=== PATIENT | female | born 1960 | race Caucasian/White ===

== ENCOUNTER → 2018-02-01 | Outpatient (CLI) | payer MEDICARE, MEDICAID ==
[~2018-02-01] MED LIST: ATIVAN0.5 MG; CLARITIN10 M2 PO; CLARITIN10 MG PO; ESTRADIOL 1 MG T1 M1 PO; FLEXERIL PO; FLONASE 0.05%50 MCG NASAL; HYDROCODON-ACE1 EAC5; HYDROCODON-ACE1 EAC5 PO; IBUPROFEN 600600 M1 PO; LYRICA 50 MG50 MG PO; MAGNESIUM; MEDROLDOSEPACK PO; MELOXICAM7.5 MG PO; MOBIC15 MG PO; MOBIC7.5 MG PO; MOTION RELIEF25 MG PO; NEXIUM40 MG PO; PHENERGAN25 M2 RC; PROAIR HFA8.5 GM IH; PROAIR HFA8.5 GM INH; PROBIOTIC1 EAC2 PO; XANAX 0.25 MG0.25 MG PO; XANAX 0.5 MG0.5 M1 PO; XANAX 0.5 MG0.5 MG PO; XYZAL5 MG PO; ZOFRAN ODT4 MG PO; ZYRTEC10 M5 PO
--- NOTE | 2018-02-09 14:39 | PAINCON ---
[address] [address] PAIN MANAGEMENT CONSULTATION Name: LINSEY CRAIG Room: [facility] RAY HurtadoDagmar#: [id number] Admission: 02/01/18 Attend Phys: Julio Mckoy MD Discharge: Date of : 62 Report #: [id number] THIS REPORT FOR: //name// CC: Rigo Mckoy DATE OF SERVICE: 02/01/2018 CHIEF COMPLAINT: Here for medication renewal, low back and right leg pain. FOLLOWUP HISTORY: The patient is a 57-year-old female who has been seen in the pain clinic and followed by Dr. Jett Bowens. She has returned today for renewal of her medications. This is my first time following up with the patient. She does have some low back pain in the right lower extremity and has had some paresthesias in the past. She has undergone epidural steroid injections and found that they would have been helpful. As noted that her pain is improved either 50-90% after injections in the past. She did fall in November. She feels that her back is better now. Had some pain radiating down to the right leg. She rates her pain as a 3/10. At this juncture, she would like to have her medications hydrocodone and Flexeril refilled. Notes that with her pain she has had some discomfort with walking, sitting, standing, bending, lifting as well as some difficulty with sleeping. ALLERGIES: OXYCODONE, MORPHINE, DULOXETINE, GABAPENTIN. MEDICATIONS: Alprazolam, albuterol, Zyrtec, cyclobenzaprine, estradiol, fluticasone, hydrocodone, ibuprofen, lactobacillus, Xyzal and magnesium. PAST MEDICAL HISTORY: Lumbar radiculopathy, lumbosacral spondylosis with radiculopathy, degenerative of lumbar spine. PAST SURGICAL HISTORY: Lumbar spine surgery 2002 first, in 2008 spinal cord stimulator infected and removed after sepsis, right shoulder surgery in 2007, hysterectomy in 01/17/1993, lap band in 2009, back surgeries were 03/2002 and 04/2009. SOCIAL HISTORY: She has smoked tobacco, denies illicit use of drugs. PHYSICAL EXAMINATION: GENERAL: The patient is a well-developed female, looks her stated age. Appearance: Appropriate appearance. Orientation: The patient is alert and oriented x 3. Affect appears appropriate. HEENT: Normocephalic, atraumatic with extraocular eye muscles intact. Normal hearing. No nasal complaints. Moist buccal membranes. NECK: [place] [address] PAIN MANAGEMENT CONSULTATION Name: LINSEY CRAIG Room: [facility]#: [id number] Admission: 02/01/18 Attend Phys: Julio Mckoy MD Discharge: Date of : 62 Report #: [id number] LUNGS: Clear to auscultation. HEART: Regular rate. ABDOMEN: Nontender. EXTREMITIES: The patient is not having significant problems in her lower extremities. No clubbing, cyanosis or edema. Straight leg raises are not very problematic today. Babinski is negative. Gait is normal. PAIN CLINIC ASSESSMENT: 1. History of osteoarthritis, lumbar spondylosis. 2. Height 5 feet 3 inches, weight 172 pounds, BMI is 30. 3. Vital Signs: Blood pressure 142/80, pulse 78, respiratory rate is 14, pain intensity 3/10. 4. Fall risk. The patient has not fallen in the last 3 months. 5. Blood thinner, the patient is not on a blood thinner 6. History of hypertension. The patient is not being treated for hypertension. 7. Opioid therapy. The patient is receiving opioid therapy and gets her medication from the pain clinic. 8. Risk assessment tool: 9. Functional assessment tool. 10. Recreational drug use. The patient denies use of recreational drugs use. She states that she continue to use tobacco, the patient states that she continues to decrease her tobacco use down to 6 cigarettes per day, down from 1 pack per day, and has a 70-[id number]-[id number] history. Denies use of alcohol frequently, occasionally on Wednesday and might drink beverage. ASSESSMENT: 1. Symptomatic lumbar radiculopathy, history. 2. Displaced lumbar intervertebral disk with radiculopathy. 3. Lumbosacral spondylosis with radiculopathy. 4. Lumbar degeneration. 5. Chronic intractable pain, had spinal cord stimulator which has been removed after infection. RECOMMENDATIONS: We discussed treatment options with the patient. At this juncture, she finds that her current medications are helpful. They include cyclobenzaprine 10 mg p.o. b.i.d., hydrocodone 10/325 one p.o. q.i.d. and Meloxicam 7.5 mg b.i.d. The patient feels that alprazolam is helpful. We explained to her that we usually do not write for that medication. She will follow up with her primary at which time if it is felt that is needed to be continued, but she could get that from her. Pain physicians feel that those types of medications can be contraindicated/not helpful and chronic pain. They decreased the amount of serotonin levels. This can sometimes exacerbates the pain. A script for her medications has been written. She will call us if she [address] [place] [address] PAIN MANAGEMENT CONSULTATION Name: LINSEY CRAIG Room: [facility]#: [id number] Admission: 02/01/18 Attend Phys: Julio Mckoy MD Discharge: Date of : 62 Report #: [id number] has any problems with her medications. We would like to thank you for letting us participate in her care. We hope she continues to improve. <ELECTRONICALLY SIGNED> By: Julio Mckoy MD 02/09/18 1439 1433 1542N. Javier Mckoy MD /[facility]
== END ==
LOC: M.PC 01-31 09:10
DX: M47.27 Other spondylosis with radiculopathy, lumbosacral region (principal); M51.16 Intervertebral disc disorders with radiculopathy, lumbar region; G89.4 Chronic pain syndrome; M79.604 Pain in right leg

== ENCOUNTER → 2018-04-26 | Outpatient (CLI) | payer MEDICARE, MEDICAID ==
--- NOTE | 2018-05-11 13:50 | PAINCON ---
[address] [address] PAIN MANAGEMENT CONSULTATION Name: LINSEY CRAIG Room: [facility] R[facility] HurtadoDagmar#: [id number] Admission: 04/26/18 Attend Phys: Julio Mckoy MD Discharge: Date of : 62 Report #: [id number] THIS REPORT FOR: //name// CC: Rigo Mckoy DATE OF SERVICE: 04/26/2018 FOLLOWUP COMPLAINT: Here for medication renewal. I have had some puppies and I recently fell on my knees because they got in the way. FOLLOWUP HISTORY: The patient is a 57-year-old female who has been followed in the Pain Clinic because of chronic pain. She has pain radiating down the lower portion of her back. She also has pain in her right leg. She has had a litter of puppies. There were 10. One . Nine were living with her. States that when she was going outside, one of the dogs ran in front of her. She stumbled and fell to her knees. She is having pain and discomfort on the left and the right side. She is having difficulty sleeping on her left side or her right side. Palpation in the lateral portion of her hips is very sore. She rates her pain as a 3/10 at this juncture. As you may recall, she has had some episodes of lumbar radiculopathy. Overall, things are going reasonably well. She would like to continue with her medication of hydrocodone and Flexeril. She feels that those medications continued to be helpful. Notes that continues to have some pain and discomfort when she is walking, standing, or climbing stairs, bending and lifting. Medications as well as cold packs to the affected area are helpful. ALLERGIES: OXYCODONE, MORPHINE, GABAPENTIN, DULOXETINE. MEDICATIONS: Alprazolam, albuterol, Zyrtec, cyclobenzaprine, estradiol, fluticasone, hydrocodone, ibuprofen, lactobacillus, Xyzal, magnesium. PAIN CLINIC ASSESSMENT: 1. The patient has a history of osteoarthritis with some lumbar spondylosis. 2. Height 5 feet 4 inches, weight 176 pounds, BMI is 30. 3. VITAL SIGNS: Blood pressure 134/85, heart rate 85, respiratory rate 16, room air saturation 96%, and temperature 98.2. 4. Pain intensity 02/05. 5. Fall risk. The patient tripped over some puppies and fell with some soreness in her hips at this juncture. 6. Blood thinner. The patient is not on a blood thinning medication. 7. History of hypertension. The patient is not being treated for hypertension. 8. Opioid therapy. The patient is receiving opioid therapy from the Pain Clinic and has signed a contract with the Pain Clinic. Gets her medication [place] [address] PAIN MANAGEMENT CONSULTATION Name: LINSEY CRAIG Room: [facility]#: [id number] Admission: 04/26/18 Attend Phys: Julio Mckoy MD Discharge: Date of : 62 Report #: [id number] 9. Risk assessment tool. 10. Functional assessment tool. 11. Recreational drug. The patient denies use of recreational drugs. 12. Tobacco: The patient states that she continues to smoke and is trying to decrease her amount of tobacco use. 13. Alcohol: The patient denies use of regular alcohol use, occasional use and drinks an alcoholic beverage. PHYSICAL EXAMINATION: GENERAL: The patient is a well-developed and well-nourished female, VITAL SIGNS: Appears her stated age. She is alert and oriented x 3. Affect is appropriate. HEENT: Normocephalic, atraumatic. Extraocular eye muscles intact. Normal hearing. Nasal mucosa moist. NECK: Without adenopathy, masses. Good range of motion. LUNGS: Clear to auscultation without rhonchi. HEART: Regular rate. Normal S1, S2. ABDOMEN: Nontender, slightly protuberant. EXTREMITIES: Upper extremity muscle strength is judged to be 5/5 without clubbing, cyanosis, or edema. The patient has a number of scratches on her left and right hands as a result of the puppies scratching her. Lower extremity, the patient has pain and discomfort in the left as well as the right trochanteric bursitis area. Palpation in this area causes the patient to wince and pullback. IMPRESSION: 1. History of symptomatic lumbar radiculopathy by history. 2. Recent fall, tumbling over puppies hitting her knees. The patient has left and right bursitis. 3. Lumbosacral spondylosis with radiculopathy history. 4. Lumbar degeneration. 5. Chronic intractable pain treated with opioid therapy. 6. The patient had a spinal cord stimulator which was removed after development of infection. RECOMMENDATIONS: We discussed treatment options with the patient. At this juncture, we will continue with her current medications. A script for her medications has been written. Cyclobenzaprine, hydrocodone, Meloxicam as well as alprazolam have been written. The patient has also been given a Medrol Dosepak to take for the trochanteric bursitis on the left and right side. Hopefully, things will improve, so that she is able to sleep on her side. She will call us if she has any problems [place] [address] PAIN MANAGEMENT CONSULTATION Name: LINSEY CRAIG Room: [facility]#: [id number] Admission: 04/26/18 Attend Phys: Julio Mckoy MD Discharge: Date of : 62 Report #: [id number] We would like to thank you for letting us participate in her care. We hope she continues to improve. <ELECTRONICALLY SIGNED> By: Julio Mckoy MD 05/11/18 1350 1026 1227N. Javier Mckoy MD /nt
== END ==
LOC: M.PC 00:08
DX: M70.52 Other bursitis of knee, left knee (principal); M70.51 Other bursitis of knee, right knee; M51.36 Other intervertebral disc degeneration, lumbar region; G89.4 Chronic pain syndrome; Z79.899 Other long term (current) drug therapy

== ENCOUNTER → 2018-07-19 | Outpatient (CLI) | payer MEDICARE, MEDICAID ==
--- NOTE | 2018-07-27 16:41 | PAINCON ---
[address] [address] PAIN MANAGEMENT CONSULTATION Name: LINSEY CRAIG Room: [facility] RAY HurtadoDagmar#: [id number] Admission: 07/19/18 Attend Phys: Julio Mckoy MD Discharge: Date of : 62 Report #: [id number] THIS REPORT FOR: //name// CC: Rigo Mckoy DATE OF SERVICE: 07/19/2018 CHIEF COMPLAINT: Low back pain in the right leg area. HISTORY OF PRESENT ILLNESS: The patient is a 57-year-old female who has been referred to the pain clinic for evaluation. She has been experiencing pain and discomfort in her back. The patient states that she has some plants on the back side of her yard. Wednesday, she decided to move the plants. Some of the animals were disturbing the plants. After pulling these plans she noticed a worsening of her pain and discomfort. She did have a history of bursitis in the past. At this juncture, she has noticed a worsening of pain and discomfort as a result of this. She is experiencing pain in the middle portion of her back. Notes the pain is in a 9/10. She has difficulty with activities of daily living. There has been no change in her bowel or bladder function. Feels that the Meloxicam medication, Hydrocodone, Xanax and Flexeril continue to be helpful. Pain is greater than 50% improved. She is experiencing more pain now after lifting the items. They weighed about 100 pounds each. Notes that walking, standing, sitting, climbing stairs, lifting and bending are problematic. She has tried heat and cold finds that is somewhat helpful. ALLERGIES: OXYCODONE AND MORPHINE, GABAPENTIN AND DULOXETINE. CURRENT MEDICATIONS: Albuterol 1 puff q.i.d., alprazolam 0.5 mg, Zyrtec 10 mg at bedtime, Flexeril 10 mg b.i.d./t.i.d. p.r.n., Estrace 1, 2 mg tablets daily, Flonase 0.05% nasal spray b.i.d. each nostril, hydrocodone 10/325 one p.o. q.i.d., ibuprofen 600 mg q. 6 hours, lactobacillus probiotic, Xyzal 5 mg magnesium. PAIN CLINIC ASSESSMENT: 1. The patient has a history of osteoarthritis with some problems in the lumbar back with spondylosis. 2. Height 5 feet 4 inches, weight 176 pounds, BMI is 30. 3. Vital signs: Blood pressure 144/71, heart rate 64, respiratory rate 16, room air saturation 94% and temperature 98.1. Pain intensity 9/10. 4. Fall risk. The patient has not fallen in the last 3 months. 5. Blood thinner. The patient is not on a blood thinning medication. 6. Hypertension. The patient is not being treated for hypertension. 7. Opioid. The patient is receiving opioid medications through the pain clinic. 8. Risk [place] [address] PAIN MANAGEMENT CONSULTATION Name: LINSEY CRAIG [id number] Admission: 07/19/18 Attend Phys: Julio Mckoy MD Discharge: Date of : 62 Report #: [id number] 9. Functional assessment tool. 10. Recreational drug use. The patient denies use of recreational drugs. 11. Tobacco. The patient smokes about 1/5 of a pack of cigarettes per week. 12. The patient has a 81-wlsv-ixzb history. The patient uses a vapor 10. 13. Alcohol: The patient denies use of alcoholic beverages. PHYSICAL EXAMINATION: GENERAL: The patient is a well-developed, well-nourished white female, appears her stated age. She is alert and oriented x 3. Affect is appropriate. Speech is fluent. HEENT: Normocephalic, atraumatic. Extraocular eye muscles intact. Normal hearing. Nasal mucosa is moist. NECK: Without adenopathy or masses. Good range of motion. LUNGS: Clear to auscultation without rhonchi or rales. HEART: Regular rate. S1, S2 normal. ABDOMEN: Nontender, slightly protuberant. EXTREMITIES: Upper extremity muscle strength is judged to be 5/5 without neurological changes. The patient has less scratches on her arm. She did have some number of scratches last visit because of puppies. He does have some pain and discomfort in lower portion of her back. He has a well-healed scar from about L3 to the sacral area. Palpation in the right paraspinous area, reproduces pain and discomfort. IMPRESSION: 1. Myofascial pain as a result of moving items weighing up to 100 pounds. 2. History of symptomatic lumbar radiculopathy by history. 3. Lumbosacral spondylosis with radicular history. 4. Lumbar degenerative changes. 5. Chronic intractable pain treated with opioid therapy. 6. The patient has a spinal cord stimulator initially, but was removed secondary to infection. RECOMMENDATIONS: We discussed treatment options with the patient. Palpation in the area of the right paraspinal area at approximately L4, L5 and S1 reproduce a significant component of the patient's pain. Palpation in this area reproduced the pain particularly when the patient leaned forward. This area was sterilely prepped with a Betadine solution. A 25-gauge needle was then advanced into the area of the discomfort. The patient states that this did reproduce her discomfort. Total of 10 mL of 0.5% bupivacaine and 40 mg triamcinolone was injected into this area. Approximately 2 inches below this was another area, which was tender and cause pain. This area was identified. This trigger point was injected with a total of 10 mL of 0.5% bupivacaine and 40 mg triamcinolone. The patient tolerated the procedure well. There were no complications. She remained in the pain clinic for an appropriate amount of time. She will follow up in the future as needed. We would like to thank [place] [address] PAIN MANAGEMENT CONSULTATION Name: LINSEY CRAIG Room: [facility]#: [id number] Admission: 07/19/18 Attend Phys: Julio Mckoy MD Discharge: Date of : 62 Report #: [id number] participate in her care. A script for her medications of hydrocodone were rewritten. <ELECTRONICALLY SIGNED> By: Julio Mckoy MD 07/27/18 1641 1703 0310N. Javier Mckoy MD /nt
== END | disposition home or self-care (01) ==
LOC: M.PC 04:45
DX: M79.1 Myalgia (principal); M54.17 Radiculopathy, lumbosacral region; I10 Essential (primary) hypertension; Z68.30 Body mass index [BMI] 30.0-30.9, adult; Z79.899 Other long term (current) drug therapy; Z88.8 Allergy status to other drugs, medicaments and biological substances

== ENCOUNTER → 2018-10-11 | Outpatient (CLI) | payer OTHER, MEDICAID ==
--- NOTE | 2018-10-12 15:35 | PAINCON ---
[facility] [address] [place] [address] PAIN MANAGEMENT CONSULTATION Name: LINSEY CRAIG Room: [facility] RAY HurtadoDagmar#: [id number] Admission: 10/11/18 Attend Phys: Julio Mckoy MD Discharge: Date of : 62 Report #: [id number] THIS REPORT FOR: //name// CC: Rigo Mckoy DATE OF SERVICE: 10/11/2018 FOLLOWUP HISTORY: The patient is a 57-year-old female who has been followed in the pain clinic because of pain and discomfort in her back. She injured her back while moving some plants. She rates her pain as 3-4 at this juncture. She did have a trigger point injection at the last visit, it was found that there was greater than 50% improvement in her pain, did get pulled down by her dog. States that her dog is female, is a pit bull. Dog was pulling. She fell to her knees and elbows. She has noted some pain and discomfort in the right calf area down into the anterior portion of her right foot. Notes that this intensity, sometimes wakes her makes it more difficult to fall asleep. She has not had back surgery. Denies any bowel or bladder dysfunction. Feels that the Meloxicam 7.5 mg b.i.d. works well. Notes activities of daily living such as walking, sitting, standing, climbing stairs, lifting and bending can still be problematic. She feels that her medications, heat and cold are helpful. ALLERGIES: OXYCODONE, MORPHINE, GABAPENTIN, DULOXETINE. CURRENT MEDICATIONS: Albuterol puff 1 q.i.d., alprazolam 0.5 mg, Zyrtec 10 mg at bedtime, Flexeril 10 mg b.i.d., Estrace 1-2 mg tablets daily, Flonase 0.05% nasal spray b.i.d., hydrocodone 10/325 one p.o. q.i.d., meloxicam 7.5 mg 1 p.o. b.i.d., lactobacillus probiotic, Xyzal 5 mg, magnesium. PAIN CLINIC ASSESSMENT/PQRS: 1. The patient does have some problem with osteoarthritic changes in the low back area with spondylosis. 2. Height 5 feet 4 inches, weight 183 pounds, BMI 31.5. 3. Vital signs: Blood pressure 143/74, heart rate 74, respiratory rate 16, room air saturation 96%, temperature 98.4. 4. Pain score 3/10. 5. Fall risk. The patient did fall after being pulled down by her pit-bull dog. 6. Blood thinner. The patient is not on a blood thinning medication. 7. Hypertension. The patient is not being treated for hypertension. 8. Opioids. The patient is receiving her medications from [facility], pain clinic. 9. Risk assessment tool, low for opioid use. 10. Functional assessment tool. 11. Recreational drug use. The patient denies use of recreational drugs. 12. Tobacco: The patient smokes less. States at this juncture, she is smoking [facility] [address] [place] [address] PAIN MANAGEMENT CONSULTATION Name: LINSEY CRAIG Room: [facility]#: [id number] Admission: 10/11/18 Attend Phys: Julio Mckoy MD Discharge: Date of : 62 Report #: [id number] about 1-2 cigarettes per day. She is using vapor 10. She is aware that it is indeed still nicotine, but feels that this better that with chemicals from cigarettes. 13. Alcohol: The patient denies use of alcohol use. PHYSICAL EXAMINATION: GENERAL: The patient is a well-developed, well-nourished white female. Appears her stated age. She is alert and oriented x3. Her affect is appropriate. Speech is fluent. HEAD, EYES, EARS, NOSE, AND THROAT: Normocephalic, atraumatic. Extraocular eye muscles intact. Sclerae nonicteric. Mucous membranes are moist. NECK: Without adenopathy or masses. Good range of motion. LUNGS: Clear to auscultation without rhonchi or rales. HEART: Regular rate. S1, S2. ABDOMEN: Nontender, slightly protuberant, bowel sounds present. EXTREMITIES: Upper extremity muscle strength is judged to be 5/5 for the major muscle groups. The patient has pain and discomfort in her right leg, which radiates down the lower right L5 distribution L4-L5 distribution below her knee. States that sometimes wakes her at night with cramping sensation. A well-healed scar in the sacral area. IMPRESSION: 1. History of myofascial pain after lifting a 100-pound item. 2. History of symptomatic lumbar radiculopathy by history. 3. Lumbosacral spondylosis with radicular history. 4. Lumbar degenerative changes. 5. Chronic intractable pain treated with opioid therapy. 6. The patient has a spinal cord stimulator initially, but was removed secondary to infection. RECOMMENDATIONS: We discussed treatment options with the patient. We will continue with her current medical regimen. Risks and benefits of opioid medication were discussed. They can cause dependence. They can become less effective secondary to tolerance, 72,000 people last year as a result of overdosing. The patient is aware of the statistics and states that she is using her medications as prescribed. They enable her to engage in activities, she would not be able to without significant discomfort. She would like to continue with her medications. A script for hydrocodone 10/325 one p.o. q.i.d. has been written. The patient will also continue with alprazolam 0.5 mg one p.o. t.i.d., Flexeril 10 mg 1 p.o. t.i.d. and Mobic 7.5 mg 1 p.o. b.i.d. have been dispensed. The patient will call us if [place] [address] PAIN MANAGEMENT CONSULTATION Name: LINSEY CRAIG [facility]: [facility]#: [id number] Admission: 10/11/18 Attend Phys: Julio Mckoy MD Discharge: Date of : 62 Report #: [id number] We would like to thank you for letting us to participate in her care. We hope she continues to improve. <ELECTRONICALLY SIGNED> By: Julio Mckoy MD 10/12/18 1535 1141 1659N. Javier Mckoy MD /[facility]
== END ==
LOC: M.PC 04:37
DX: M47.27 Other spondylosis with radiculopathy, lumbosacral region (principal); M51.16 Intervertebral disc disorders with radiculopathy, lumbar region; G89.4 Chronic pain syndrome; M79.18 Myalgia, other site; Z79.891 Long term (current) use of opiate analgesic

== ENCOUNTER → 2019-01-03 | Outpatient (CLI) | payer OTHER, MEDICAID ==
--- NOTE | ~2019-01-03 | PAINCON ---
[address] [address] PAIN MANAGEMENT CONSULTATION Name: LINSEY CRAIG Room: [facility] RAY HurtadoDagmar#: [id number] Admission: 01/03/19 Attend Phys: Julio Mckoy MD Discharge: Date of : 62 Report #: [id number] THIS REPORT FOR: //name// CC: Rigo Mckoy DATE OF SERVICE: 01/03/2019 CHIEF COMPLAINT: Here for medication renewal. HISTORY: The patient is a 58-year-old female who has been followed in the Pain Clinic because of chronic pain. As you recall, she injured her back while moving some plants. States that her pain today is a 3/10. Has noted greater than 50% improvement overall. She did fall after being ____ by her dog, which is a pit bull. Has some discomfort in her calf and pain radiating to anterior portion of her right foot. She has not had back surgery. Denies any bowel or bladder dysfunction. She feels that Meloxicam is helpful. Continues to note pain and discomfort with activities of daily living such as sitting, standing, climbing chairs, walking, climbing stairs, lifting and bending still remain problematic. Feels that her medications are helpful and would like to continue with them. Again, her primary problem is low back pain with right leg discomfort. She has had a lap band placed. She is considering progressing to a gastric sleeve. She is scheduled to see a surgeon for evaluation on 01/16/2019. ALLERGIES: OXYCODONE, MORPHINE, GABAPENTIN, DULOXETINE. CURRENT MEDICATIONS: Albuterol 1 puff q.i.d., alprazolam 0.5 mg, Zyrtec 10 mg at bedtime, Flexeril 10 mg b.i.d., esterase 1-2 mg tablets daily, Flonase 0.05% spray, hydrocodone 10/325 one p.o. q.i.d., Meloxicam 7.5 mg 1 p.o. b.i.d., lactobacillus probiotic, Xyzal 5 mg, magnesium. PAIN CLINIC ASSESSMENT/PQRS: 1. The patient has some osteoarthritic changes in her low back area with spondylosis. 2. The patient is not being treated for rheumatoid arthritis. 3. Height 5 feet 4 inches, weight 191 pounds, BMI is 32.9. 4. Blood pressure 143/60, heart rate 80, respiratory rate 16, room air saturation 94%, and temperature 98.2. 5. Pain intensity 10. 6. Fall risk. The patient has not fallen since we saw her last. She did get pulled down by her pit bull. 7. Blood thinner. The patient is not on a blood thinning medication. 8. Hypertension. The patient is not being treated for hypertension. 9. Opioids. The patient is receiving her medications from one source, the Pain Clinic. 10. Risk assessment tool, low [place] [address] PAIN MANAGEMENT CONSULTATION Name: LINSEY CRAIG [id number] Admission: 01/03/19 Attend Phys: Julio Mckoy MD Discharge: Date of : 62 Report #: [id number] 11. Functional assessment tool. 12. Recreational drug use. The patient denies use of recreational drugs. 13. Tobacco: The patient smokes and continues to try to decrease her tobacco use. 14. The patient is using vapor treatment. 15. Alcohol: The patient denies use of alcoholic beverages on a regular basis. PHYSICAL EXAMINATION: GENERAL: The patient is a well-developed and well-nourished white female. Appears her stated age. She is alert and oriented x 3. Her affect is appropriate. Speech is fluent. HEENT: Normocephalic and atraumatic. Extraocular eye muscles intact. Sclerae nonicteric. Mucous membranes are moist. NECK: Without adenopathy or JVD. Good range of motion. LUNGS: Clear to auscultation without rhonchi or rales. HEART: Regular rate. S1, S2. ABDOMEN: Nontender, slightly protuberant. Bowel sounds present. EXTREMITIES: Upper extremity muscle strength is judged to be 5/5 for the major muscle groups. The patient has some pain and discomfort in the right leg. This radiates down the L4-L5 dermatomal distribution. This also proceeds below her knee. Notes some cramping discomfort. Well-healed scar in the sacral area. IMPRESSION: 1. History of myofascial pain after lifting 100-pound. 2. History of symptomatic lumbar radiculopathy by history. 3. Lumbosacral spondylosis with radicular history. 4. Lumbar degenerative changes. 5. Chronic intractable pain, treated with opioid therapy. 6. The patient has a spinal cord stimulator initially, but this was removed secondary to infection. RECOMMENDATIONS: We discussed treatment options with the patient. Risks and benefits of opioid use were discussed. They could become problematic secondary to development of dependence. The patient also is aware of the left knee and affect of these medications as a result of tolerance. She would like to have her medications renewed. A script for her medications have been provided. They include hydrocodone 10/325 one p.o. q.i.d., alprazolam 0.5 mg t.i.d. The patient will call us if she has any concerns. We would like to thank you for letting us participate in her care. We hope she continues to improve. By: [id number]. Javier Mckoy MD /nt
== END ==
LOC: M.PC 10:00
DX: M47.897 Other spondylosis, lumbosacral region (principal); G89.4 Chronic pain syndrome; M54.16 Radiculopathy, lumbar region; M79.18 Myalgia, other site; Z79.899 Other long term (current) drug therapy

== ENCOUNTER → 2019-03-28 | Outpatient (CLI) | payer OTHER, MEDICAID ==
[~2019-03-28] MED LIST changes: +CYCLOBENZAPRINE5 MG PO
--- NOTE | ~2019-03-28 | PAINCON ---
[address] [address] PAIN MANAGEMENT CONSULTATION Name: LINSEY CRAIG Room: [facility] RAY HurtadoDagmar#: [id number] Admission: 03/28/19 Attend Phys: Julio Mckoy MD Discharge: Date of : 62 Report #: [id number] THIS REPORT FOR: //name// CC: Rigo Mckoy DATE OF SERVICE: 03/28/2019 CHIEF COMPLAINT: Chronic low back pain. HISTORY: The patient is a 58-year-old female who has been followed in the pain clinic because of chronic pain. As you recall, she injured her back while moving some plants. She stated this has been more problematic since January. She notes an improvement overall. She did fall when her dog has got under her foot. She has returned today for renewal of her medications. She is contemplating a gastric sleeve. She has used a different technique in the past. She states that she is doing stretching exercises to help with her pain. She rates her pain as a 5/10. She has had a lap band in the past. She feels that her medications of Flexeril, meloxicam. Alprazolam, and hydrocodone are beneficial. They provide her 50% to 75% improvement in her discomfort. She notes the pain is worse with change in temperature, walking, sitting, standing, climbing stairs, lifting and bending. She feels that her pain improves with use of medication as well as with the use of rest. She has decreased her use of tobacco. She has not used cigarettes since 01/27/2019. She found that the Chantix has been beneficial. ALLERGIES: CODEINE, MORPHINE, GABAPENTIN, and DULOXETINE. CURRENT MEDICATIONS: Albuterol 1 puff p.o. q.i.d., alprazolam 0.5 mg, Zyrtec 10 mg at bedtime, Flexeril 10 mg b.i.d., esterase 1-2 tablets daily, Flonase 0.05% spray, hydrocodone 10/325 one p.o. q.i.d., Meloxicam 7.5 mg 1 p.o. b.i.d., lactobacillus probiotic, Xyzal 5 mg, and magnesium. PAIN CLINIC ASSESSMENT/PQRS: 1. The patient has some arthritic changes in her low back with spondylosis. She has not been treated for rheumatoid arthritis. 2. Height 5 feet 4 inches, weight 199 pounds, and BMI is 36.4. 3. Blood pressure 150/46, heart rate 70, respiratory rate 16, room air saturation 97%, and temperature 99.3. 4. Pain intensity: 5/10. 5. Fall risk: The patient has not fallen since we saw her last. 6. Blood thinner: The patient is not on a blood thinning medication. 7. Hypertension. The patient has not been treated for hypertension. 8. Opioids: The patient is receiving her medication [place] [address] PAIN MANAGEMENT CONSULTATION Name: LINSEY CRAIG [facility] [id number] Admission: 03/28/19 Attend Phys: Julio Mckoy MD Discharge: Date of : 62 Report #: [id number] 9. Risk assessment tool: Low for opioid use. 10. Functional assessment tool. 11. Recreational drug use. The patient denies use of recreational drugs. 12. Tobacco: The patient has been using Chantix. This was able to curb her desire for use of tobacco. Overall, she is happy with the results. 13. Alcohol: The patient denies use of alcoholic beverages. PHYSICAL EXAMINATION: GENERAL: The patient is a well-developed, well-nourished, somewhat obese white female, appears her stated age. She is alert and oriented x 3. Affect is appropriate. Speech is fluent. HEENT: Normocephalic, atraumatic. Extraocular eye muscles intact. Sclerae are nonicteric. Mucous membranes are moist. NECK: Without adenopathy or JVD. HEART: Regular rate. S1, S2. LUNGS: Clear to auscultation without rhonchi or rales. ABDOMEN: Slightly protuberant. Bowel sounds present. MUSCULOSKELETAL: Without significant scoliosis, kyphosis or lordosis. The patient has some pain and discomfort in her lower back with some pain that radiates down to her left leg in the L4-L5 dermatomal distribution. Well-healed scar in the sacral area. IMPRESSION: 1. History of myofascial pain after lifting 100 pounds. 2. History of symptomatic lumbar radiculopathy by history. 3. Lumbosacral spondylosis with radicular hip history. 4. Lumbar degenerative changes. 5. Chronic intractable pain treated with opioid therapy. 6. The patient has a spinal cord stimulator initially, but this was removed secondary to infection. RECOMMENDATIONS: We discussed treatment options with the patient. At this juncture, we will continue with her Flexeril medications. A script for Flexeril medication has been written. She will take 5 mg 1 p.o. b.i.d. as necessary. The patient will also continue with hydrocodone 10/325 one p.o. q.i.d. The patient has been given 3-month supply of the hydrocodone medication. She will continue with Xanax 0.5 mg 1 p.o. t.i.d. and meloxicam 7.5 mg 1 p.o. b.i.d. The patient will stop the meloxicam should she note some GI concerns. We would like to thank you for letting us participate in her care. We hope she continues to improve. By: [id number]. Javier Mckoy MD /nt
== END ==
LOC: M.PC 04:52
DX: G89.29 Other chronic pain (principal); M47.26 Other spondylosis with radiculopathy, lumbar region; Z88.5 Allergy status to narcotic agent; Z88.0 Allergy status to penicillin; Z79.899 Other long term (current) drug therapy; Z79.891 Long term (current) use of opiate analgesic

== ENCOUNTER → 2019-06-27 | Outpatient (CLI) | payer OTHER, MEDICAID ==
--- NOTE | ~2019-06-27 | PAINCON ---
[address] [address] PAIN MANAGEMENT CONSULTATION Name: LINSEY CRAIG Room: [facility] RAY HurtadoDagmar#: [id number] Admission: 06/27/19 Attend Phys: Julio Mckoy MD Discharge: Date of : 62 Report #: [id number] THIS REPORT FOR: //name// CC: Rigo Mckoy DATE OF SERVICE: 06/27/2019 CHIEF COMPLAINT: Low back and right leg pain. HISTORY: The patient is a 58-year-old female who has been seen in the pain clinic in the past because of pain and discomfort in the low back area. She had a lap band placed in 2009. The lap band has been removed. This was on 06/20/2019. The patient also had a gastric bypass at that time. She is wearing a compression garment around her abdomen. She has been 1 week out of surgery. Overall, things seem to be going reasonably well. Rates her pain as a 7/10 at this point. Finds that her hydrocodone, Flexeril, meloxicam and alprazolam are helpful. She has returned to the pain clinic with a desire to have these medications renewed. She feels that the pain is about 50% better at this point. Notes worsening of pain with activity, cold, walking, sitting, standing, climbing stairs, sitting and bending, lifting because of the newness of her surgery. She has used Chantix to help decrease her tobacco use. ALLERGIES: CODEINE, MORPHINE, GABAPENTIN, DULOXETINE. CURRENT MEDICATIONS: Albuterol 1 puff q.i.d., alprazolam 0.5 mg, Zyrtec 10 mg at bedtime, Flexeril 10 mg b.i.d., esterase 1-2 tablets daily, Flonase 0.05%, hydrocodone 10/325 one p.o. q.i.d., Meloxicam 7.5 mg b.i.d., lactobacillus -- probiotic, Xyzal 5 mg, and magnesium. PAIN CLINIC ASSESSMENT/PQRS: 1. The patient has some arthritic changes in the low back area with spondylosis. She has not been treated for rheumatoid arthritis. 2. Height 5 feet 2 inches, weight 199 pounds, BMI is 37.0 3. VITAL SIGNS: Blood pressure 146/80, heart rate 74, respiratory rate 16, room air saturation 95%, and temperature 98.8. 4. Pain intensity, 7/10. 5. Fall history: The patient has not fallen in the last 3 months. 6. Blood thinner. The patient is not on a blood thinning medication. 7. Hypertension. The patient is not being treated for hypertension. 8. Opioids. The patient is receiving opioid medications from one source, the pain clinic. 9. Risk assessment tool, low for opioid use. 10. Functional assessment tool. 11. Recreational drug use. The patient denies use of recreational drugs. 12. Tobacco: The patient has been using Chantix to help [place] [address] PAIN MANAGEMENT CONSULTATION Name: LINSEY CRAIG Room: [facility]#: [id number] Admission: 06/27/19 Attend Phys: Julio Mckoy MD Discharge: Date of : 62 Report #: [id number] tobacco. 13. Alcohol: The patient denies use of alcoholic beverages. PHYSICAL EXAMINATION: GENERAL: The patient is a well-developed, well-nourished white female. She is alert and oriented x 3. Somewhat obese. She has a grandchild with her during the interview was about 5 years old. HEENT: Normocephalic, atraumatic. Extraocular eye muscles intact. Sclerae nonicteric. Mucous membranes are moist. NECK: Without adenopathy or JVD. HEART: Regular rate. S1, S2. LUNGS: Clear to auscultation. The patient has a compression garment around her abdomen. MUSCULOSKELETAL: The patient without significant scoliosis, kyphosis or lordosis history. Upper extremity muscle strength judged to be 5/5 for the major muscle groups in the upper extremity. Lower extremity, the patient complains of some pain in the right leg and down the low back area in the L4-L5 dermatomal distribution. Well-healed scar in this area. IMPRESSION: 1. History of myofascial pain after lifting 100 pounds. 2. History of symptomatic lumbar radiculopathy with history of hernia. 3. Lumbosacral spondylosis with radicular hip pain. 4. Lumbar degenerative changes. 5. Chronic intractable pain treated with opioid therapy. 6. The patient has a spinal cord stimulator, but this was removed secondary to infection. RECOMMENDATIONS: We discussed treatment options with the patient. At this juncture, we will continue with the patient's current medical regimen. States that her pain has decreased from an 8 to 2-3 with the lap band. Has had a gastric bypass. She has had no complications. Did find abdominal hernia, which was repaired. The patient was told that she has gastroparesis. Has stopped smoking since January. Rarely drinks alcoholic beverages. The patient did have a script for oxycodone. States that this was provided by a physician/surgeon. States that she has had some problems with oxycodone and developed a itching as a result of that. We would recommend that the patient not take this at this juncture. She ____ continue to use the hydrocodone, which she is taking. She continued to express that she wanted an immediate release/rapid release opioid medication. She does have that in her hydrocodone, which she has already taken. A script for her medications of hydrocodone 10/325 one p.o. q.i.d. has been written. She will continue with alprazolam 0.5 mg t.i.d., total of 90 has been dispersed. The patient will also continue with Flexeril 5 mg 1 p.o. t.i.d. and meloxicam 7.5 mg b.i.d. She will monitor her GI tract should she find that she is having some GI discomfort. She will stop taking a nonsteroidal anti-inflammatory medication. She will also contact [place] [address] PAIN MANAGEMENT CONSULTATION Name: LINSEY CRAIG [facility] [id number] Admission: 06/27/19 Attend Phys: Julio Mckoy MD Discharge: Date of : 62 Report #: [id number] like to thank you for letting us participate in her care. We hope she continues to improve. By: [id number]. Javier Mckoy MD /brian
== END ==
LOC: M.PC 06-20 10:00
DX: M47.27 Other spondylosis with radiculopathy, lumbosacral region (principal); G89.4 Chronic pain syndrome; Z88.5 Allergy status to narcotic agent; Z88.8 Allergy status to other drugs, medicaments and biological substances; Z79.899 Other long term (current) drug therapy; Z79.891 Long term (current) use of opiate analgesic

== ENCOUNTER → 2019-09-19 | Outpatient (CLI) | payer OTHER, MEDICAID ==
[~2019-09-19] MED LIST changes: -MAGNESIUM; +MAGNESIUM PO; +MELATONIN5 MG SUBLING; +STOOL SOFTENER250 MG PO; +VITAMIN PATCH
--- NOTE | 2019-09-20 09:09 | PAINCON ---
[facility] [address] [place] [address] PAIN MANAGEMENT CONSULTATION Name: JANELL CRAIGA Room: [facility] RAY HurtadoDagmar#: [id number] Admission: 09/19/19 Attend Phys: Julio Mckoy MD Discharge: Date of : 62 Report #: [id number] THIS REPORT FOR: //name// CC: Rigo Mckoy DATE OF SERVICE: 09/19/2019 CHIEF COMPLAINT: Here for medication renewal. HISTORY: The patient is a 58-year-old female who has been seen in the pain clinic because of pain and discomfort in the low back area. As you may recall, she had a lap band in place in 2009. As a result of that band problems were noted. The patient underwent removal of the band. This was on 06/20/2019. She also had a gastric bypass. Overall, things are going reasonably well. She states that she has lost weight. She has lost about 39 pounds. She was told that the lap band had caused some problems. It was good that she had surgery at that point before difficulties arose. She feels that her medications of Flexeril and hydrocodone are working well. She has returned today for renewal of her scripts. ALLERGIES: CODEINE, MORPHINE, GABAPENTIN, DULOXETINE. CURRENT MEDICATIONS: Albuterol 1 puff q.i.d., alprazolam 0.5 mg, Zyrtec 10 mg at bedtime, Flexeril 10 mg b.i.d., Estrace 1-2 tablets daily, Flonase 0.05%, hydrocodone 10/325 mg q.i.d., Meloxicam 7.5 mg b.i.d. The patient is not having any GI complaints. Lactobacillus, probiotics, Xyzal 5 mg and magnesium. PAIN CLINIC ASSESSMENT AND PQRS: 1. The patient has some arthritic changes in her low back area with spondylosis. She is not being treated for rheumatoid arthritis. 2. Height 5 feet 2 inches, weight 168 pounds, BMI is 30.9. 3. Vital Signs: Blood pressure is 147/92, heart rate 81, respiratory rate 18, room air saturation 99%, temperature is 99.3. 4. Pain intensity 5/10. 5. Fall history: The patient fell in the driveway. She states that she was trying to break limb of a tree, the foot became wedged in the tree limb. She fell, hit her foot, right hip as well as hit her elbow. Overall, she is doing reasonably well and did not require medical treatment. 6. Blood thinner. The patient is not on a blood thinning medication. 7. Hypertension. The patient is on hypertension. 8. Opioids greater than 6 weeks. The patient has received her medication from one source, the pain clinic. 9. Risk assessment tool, low for opioid use. 10. Functional assessment tool. 11. Recreational drug use. The patient denies use [place] [address] PAIN MANAGEMENT CONSULTATION Name: LINSEY CRAIG Room: [facility] Ramon#: [id number] Admission: 09/19/19 Attend Phys: Julio Mckoy MD Discharge: Date of : 62 Report #: [id number] patient has used Chantix to decrease use of tobacco. She states she is not smoking at this juncture. 12. Alcohol: The patient rarely drinks alcoholic beverages. PHYSICAL EXAMINATION: GENERAL: The patient is a well-developed, well-nourished white female. Appears her stated age. She is alert and oriented x 3. Her affect is appropriate. Speech is fluent. She has lost about 39 pounds. She appears quite happy with her results. HEENT: Normocephalic, atraumatic. Extraocular eye muscles intact. Sclerae nonicteric. Mucous membranes are moist. NECK: Without adenopathy or JVD. HEART: Regular rate. S1, S2. LUNGS: Clear to auscultation. The patient is complaining of some pain and discomfort in the right upper quadrant area. MUSCULOSKELETAL: The patient without significant scoliosis, kyphosis or lordosis. Upper extremity muscle strength judged to be 5/5 for the major muscle groups in the upper extremity. Lower extremity, the patient has pain in the right lower leg with pain that radiates down into the L4-L5 dermatomal distribution, has a well-healed scar in that area. IMPRESSION: 1. Recent surgery with a gastric bypass. 2. Right upper quadrant discomfort being evaluated for possible gallbladder disease. 3. History of myofascial pain after lifting 100 pounds. 4. History of symptomatic lumbar radiculopathy with history of hernia. 5. Lumbosacral spondylosis with radicular hip pain. 6. Lumbar degenerative disk disease. 7. Chronic intractable pain treated with opioid regimen. 8. Spinal cord stimulator use in the past, which was discontinued secondary to an infection. RECOMMENDATIONS: We discussed treatment options with the patient. At this juncture, we will continue with her medications. She feels the medications are helpful. Overall, she is happy with her surgical results. She was told by her surgeon that if she has not had surgery she could have had significant problems in the abdominal area because of the lap band problem. Overall, things are going reasonably well. She is losing weight. She stays active. She would like to continue with her medications of Flexeril, meloxicam, alprazolam and hydrocodone. She does not have any problems with her GI tract. We have explained to the patient that nonsteroidal anti-inflammatory medications can be problematic with patients with GI problems. She will stop taking this medication should she note some problem with her GI tract. She is scheduled to be evaluated for possibility of gallbladder disease. She is about to undergo evaluation in the next few days. Hopefully, [place] [address] PAIN MANAGEMENT CONSULTATION Name: ALE CRAIGNDA Room: [facility]#: [id number] Admission: 09/19/19 Attend Phys: Julio Mckoy MD Discharge: Date of : 62 Report #: [id number] She will continue with her medications. A script for her medications of alprazolam 0.5 mg 1 p.o. t.i.d., hydrocodone 10/325 mg one p.o. q.i.d. have been rewritten. The patient will follow up in the next 3 months. She will call us if she has any concerns. She will also continue with the Flexeril, which she finds helpful and will be cognizant of the possible GI consequences of use of Mobic. <ELECTRONICALLY SIGNED> By: Julio Mckoy MD 09/20/19 0909 [id number]. Javier Mckoy MD /brian
== END ==
LOC: M.PC 05:24
DX: M47.817 Spondylosis without myelopathy or radiculopathy, lumbosacral region (principal); M79.18 Myalgia, other site; M51.16 Intervertebral disc disorders with radiculopathy, lumbar region; G89.4 Chronic pain syndrome; K44.9 Diaphragmatic hernia without obstruction or gangrene

== ENCOUNTER → 2019-12-21 | Outpatient (CLI) | payer OTHER, MEDICAID ==
[~2019-12-21] MED LIST changes: +LIORESAL 10 MG10 MG PO
--- NOTE | ~2019-12-21 | PAINCON ---
[address] [address] PAIN MANAGEMENT CONSULTATION Name: RAFALINSEY A Room: [facility] DamionTulio#: [id number] Admission: 12/21/19 Attend Phys: Julio Mckoy MD Discharge: Date of : 62 Report #: [id number] THIS REPORT FOR: //name// CC: Rigo Mckoy DATE OF SERVICE: 12/21/2019 CHIEF COMPLAINT: Low back pain with pain down into the right leg. HISTORY OF PRESENT ILLNESS: The patient is a 59-year-old female. As you may recall, she has undergone weight loss surgery. She has lost 60 pounds. This has been since 05/2019. She also is having some pain and discomfort in the right upper quadrant of her abdomen. There is some question as to whether or not she has gallbladder disease. She is scheduled to follow up with her surgeon in the next week. Notes that pain that radiates down into her right leg involves the anterior and lateral portion of her leg and tibia. It involves her ankles. She rates her pain as a 4/10. Feels that her pain overall with her current medical regimen is 80%-90% improved. Notes that pain increases with the cold weather. Walking, sitting, standing, going from a sitting to a standing, lifting and bending have been problematic. Finds that use of her medications continue to be beneficial. She has returned today with the hopes of getting a renewal of her medications. She was told by her pharmacy that she needed to discontinue Flexeril. She has used baclofen and found that this medication seems to be working reasonably well. She would like to have that medication renewed. ALLERGIES: CODEINE, MORPHINE, GABAPENTIN, DULOXETINE. CURRENT MEDICATIONS: Albuterol 1 puff q.i.d., alprazolam 0.5 mg, Zyrtec 10 mg at bedtime, Flexeril 10 mg b.i.d., Estrace 1-2 tablets daily, Flonase 0.05%, hydrocodone 10/325 one p.o. q.i.d., meloxicam 7.5 mg b.i.d. The patient is using lactobacillus as a probiotic, Xyzal 5 mg, magnesium. PAIN CLINIC ASSESSMENT AND PQRS: 1. The patient has some arthritic changes in her low back with spondylosis. She is not being treated for rheumatoid arthritis. 2. Height 5 feet 2 inches, weight 148 pounds, BMI is 27. 3. Vital Signs: Blood pressure 141/77, heart rate 69, respiratory rate 16, room air saturation 98% and temperature 98.3. 4. Pain intensity 4/10. 5. Fall history: The patient has not fallen in the last 3 months. 6. Blood thinner. The patient is not on a blood thinning medication. 7. Hypertension. The patient is being treated for hypertension. 8. Opioids greater than 6 weeks. The [place] [address] PAIN MANAGEMENT CONSULTATION Name: LINSEY CRAIG Room: [facility] LUIGI Ramon#: [id number] Admission: 12/21/19 Attend Phys: Julio Mckoy MD Discharge: Date of : 62 Report #: [id number] source, pain clinic. 9. Risk assessment tool, low for opioids. 10. Functional assessment tool. 11. Recreational drug use: The patient denies. 12. Tobacco: The patient states that she has smoked in the past, was able to stop. She recently has restarted smoking and is trying to stop again. 13. Alcohol: The patient denies frequent use of alcoholic beverages. PHYSICAL EXAMINATION: GENERAL: The patient is a well-developed, well-nourished white female. Appears her stated age. She is alert and oriented x 3. Her affect is appropriate. Speech is fluent. HEENT: Normocephalic and atraumatic. Extraocular eye muscles intact. The patient has lost about 60 pounds since her surgery in May. NECK: Without adenopathy or JVD. HEART: Regular rate. S1, S2. LUNGS: Clear to auscultation. The patient is complaining of some right upper quadrant pain. The thought is that she may have gallbladder disease. MUSCULOSKELETAL: The patient without significant scoliosis, kyphosis or lordosis. Upper extremity muscle strength judged to be 5/5 for the major muscle groups in the upper extremity. The patient has pain and discomfort in the right lumbar area with pain radiating down to the right buttocks and progressing down the right leg into the cole and ankle on the right side. IMPRESSION: 1. Lumbar radicular pain in the right low back area and down to the right leg in the L4-L5 distribution. 2. Recent gastric bypass surgery, stable. 3. Right upper quadrant pain, being evaluated for gallbladder disease. 4. History of myofascial pain after lifting 100 pounds. 5. Symptomatic lumbar radiculopathy with history of hernia. 6. Lumbosacral spondylosis with radicular pain in the hip. 7. Lumbar degenerative disk disease. 8. Chronic intractable pain, treated with opioid medications. 9. Spinal cord stimulator use in the past. This was discontinued secondary to infection. RECOMMENDATIONS: We discussed treatment options with the patient. At this juncture, we will continue with her medications. She feels that the medications are helpful. She does not have any problems with them. We will continue with baclofen. The patient has used this medication over the last few weeks. No real problems with it. Feels that it still is helpful and as of seems to be reasonably effective. She has stopped using the Flexeril medication. She was told by her pharmacist that is conflicted with some of her current medications. She will also continue with hydrocodone 10/325 one p.o. every 4-6 hours. She will continue with meloxicam 7.5 mg 1 p.o. b.i.d. [place] [address] PAIN MANAGEMENT CONSULTATION Name: ALE CRAIGTERESA Chau Room: [facility]#: [id number] Admission: 12/21/19 Attend Phys: Julio Mckoy MD Discharge: Date of : 62 Report #: [id number] her GI tract. Hopefully, she will be able to tolerate this without exacerbation of her GI problems given that she has had a gastric bypass. She will also continue with Xanax 0.5 mg 1 p.o. at bedtime. She takes the medications t.i.d., bedtime, midday and in the morning. We would like to thank you for letting us participate in her care. A script for her medications has been rewritten. By: [id number]. Javier Mckoy MD /brian
== END ==
LOC: M.PC 10:52
DX: M47.27 Other spondylosis with radiculopathy, lumbosacral region (principal); M51.16 Intervertebral disc disorders with radiculopathy, lumbar region; G89.4 Chronic pain syndrome; R10.11 Right upper quadrant pain; M48.061 Spinal stenosis, lumbar region without neurogenic claudication

== ENCOUNTER → 2020-04-30 | Outpatient (CLI) | payer OTHER, MEDICAID ==
--- NOTE | 2020-05-15 08:41 | PAINCON ---
[address] [address] PAIN MANAGEMENT CONSULTATION Name: RAFALINSEY A [facility] [id number] Admission: 04/30/20 Attend Phys: Julio Mckoy MD Discharge: Date of : 62 Report #: [id number] THIS REPORT FOR: //name// cc: Rigo Hodges MD, Anthony MD THIS REPORT FOR: //name// CC: Rigo Mkcoy DATE OF SERVICE: 04/30/2020 CHIEF COMPLAINT: Pain in the low back and down in the right leg. HISTORY: The patient is a 59-year-old female who has been seen in the pain clinic in the past. She has undergone weight loss surgery. She has lost 68 pounds to date. Feels that her back is somewhat better. Still has some pain in her right leg as well as the right hip. Pain is in the anterior portion of her leg. Over the last couple of months, she has noted worsening of pain and discomfort. She had gallbladder surgery because of stones. She also has kidney stones. She rates her pain today as an 8/10. Notes that her pain is worse with activities, walking, sitting, standing, lifting, bending, and notes benefit from medications, heat, cold, and rest. Rates her pain as an 8/10. She has returned today for renewal of medications. Notes that the pain radiates down into her leg, the buttocks, and down the posterior portion of her leg on the right side. She feels that her pain is 80-90% improved with the use of her medications. ALLERGIES: MORPHINE, CODEINE, GABAPENTIN, AND DULOXETINE. CURRENT MEDICATIONS: Alprazolam 0.5 mg 1 p.o. t.i.d., hydrocodone 10/325 one p.o. q.i.d., Meloxicam 7.5 mg 1 p.o. b.i.d. The patient has used a Medrol Dosepak in the past, albuterol q.i.d. p.r.n., Flonase 0.05% nasal spray, estradiol 1 mg, magnesium 500 mg, Zyrtec 10 mg, vitamin patch, melatonin 5 mg sublingual at bedtime, and docusate 250 mg b.i.d. PAIN CLINIC ASSESSMENT/PQRS: 1. The patient has some arthritic changes in her low back with spondylosis. She is not being treated for rheumatoid arthritis. 2. Height 5 feet 2 inches, weight 132 pounds, BMI is 24. 3. Vital Signs: Blood pressure 130/69, heart rate 66, respiratory rate 16, room air saturation 96%. Temperature 98.8. 4. Pain intensity 8/10. 5. Fall history: The patient has not fallen in the last 3 months. 6. Blood thinner. The patient is not on a [place] [address] PAIN MANAGEMENT CONSULTATION Name: LINSEY CRAIG [facility] [id number] Admission: 04/30/20 Attend Phys: Julio Mckoy MD Discharge: Date of : 62 Report #: [id number] 7. Hypertension. The patient is being treated for hypertension. 8. Opioids greater than 6 weeks. The patient received medication from the pain clinic. 9. Risk assessment tool, low for opioid use. 10. Functional assessment tool, has been reviewed. 11. Recreational drug use. The patient denies. 12. Tobacco. The patient smoked in the past. She has stopped on a number of occasions and restarted. 13. Alcohol. The patient denies frequent use of alcoholic beverages. PHYSICAL EXAMINATION: GENERAL: The patient is a well-developed, well-nourished white female. Appears her stated age. She is alert and oriented x 3. Her affect is appropriate. Speech is fluent. HEENT: Normocephalic, atraumatic. Extraocular eye muscles intact. Sclerae are nonicteric. Mucous membranes are moist. The patient has lost 68 pounds since her weight loss surgery. NECK: Without adenopathy or JVD. HEART: Regular rate. S1, S2. LUNGS: Generally clear to auscultation. MUSCULOSKELETAL: The patient without significant scoliosis, kyphosis, or lordosis. Upper extremity muscle strength judged to be 5/5 for the major muscle groups in the upper extremity. The patient has pain and discomfort in the L5-S1 dermatomal distribution with pain radiating down into the right buttocks and progressing down to the right leg involving the ankle and cole. IMPRESSION: 1. History of lumbar radicular pain with pain in the L5-S1 dermatomal distribution today. 2. History of gastric bypass surgery, stable. 3. Right upper quadrant pain improved after cholecystectomy. 4. History of myofascial pain. 5. Symptomatic lumbar radicular pain with history of hernia. 6. Lumbosacral spondylosis with radicular pain into the hip. 7. Lumbar degenerative disk disease. 8. Chronic intractable pain treated with opioid medications. 9. Spinal cord stimulator in the past. The patient discontinued it secondary to infection. RECOMMENDATIONS: We discussed treatment options with the patient. At this juncture, we will continue with her medications. She feels medications are helpful. She has not had any problems with these medications. We will continue with the medications and script for her medications have been rewritten. She will continue with hydrocodone 10/325 one p.o. q. 6 hours p.r.n. for pain. She will also continue with alprazolam 0.5 mg for anxiety. The patient has been provided a Medrol Dosepak. She will try this and note its efficacy[place] [address] PAIN MANAGEMENT CONSULTATION Name: LINSEY CRAIG Isac Room: [facility]#: [id number] Admission: 04/30/20 Attend Phys: Julio Mckoy MD Discharge: Date of : 62 Report #: [id number] pain continue to be problematic, she will follow up in the Pain Clinic, at which time we will consider possibility of an epidural steroid injection should the patient desire. We would like to thank you for letting us participate in her care. We hope she continues to improve. The patient will stop use of nonsteroidal anti-inflammatory medications should she note any gastric discomfort. <ELECTRONICALLY SIGNED> By: Julio Mckoy MD 05/15/20 0841 [id number]. Javier Mckoy MD /PMT
== END ==
LOC: M.PC 04:52
PROVIDERS: ATTEND Anesthesiology Pain Medicine
DX: M47.817 Spondylosis without myelopathy or radiculopathy, lumbosacral region (principal); M51.36 Other intervertebral disc degeneration, lumbar region; G89.29 Other chronic pain; F11.20 Opioid dependence, uncomplicated; Z96.82 Presence of neurostimulator; Z98.84 Bariatric surgery status; Z87.39 Personal history of other diseases of the musculoskeletal system and connective tissue; Z79.899 Other long term (current) drug therapy

== ENCOUNTER → 2020-07-23 | Outpatient (CLI) | payer OTHER, MEDICAID ==
--- NOTE | ~2020-07-23 | PAINCON ---
[address] [address] PAIN MANAGEMENT CONSULTATION Name: ALE CRAIGNDA Isac [id number] Admission: 07/23/20 Attend Phys: Julio Mckoy MD Discharge: Date of : 62 Report #: [id number] THIS REPORT FOR: //name// cc: Rigo Hodges MD, Anthony MD THIS REPORT FOR: //name// CC: Rigo Mckoy DATE OF SERVICE: 07/23/2020 CHIEF COMPLAINT: "I had surgery." HISTORY: The patient is a 59-year-old female who has been followed in the pain clinic. She suffers from chronic pain. She has had abdominal discomfort. She recently underwent laparoscopic surgery. She had 2 hernia repairs. Overall, she feels that things have improved. She is still having some increased discomfort as a result of the recent surgery. She is scheduled to follow up in the near future with her surgeon. She feels that things are going reasonably well. She has not had any complications other than pain and some discomfort. She rates her pain as 4/10 at this juncture. She feels that the incision sites are healing well. She continues to have some low back pain involving her right leg. She is having some numbness involving the right leg, which has been intermittent in the past. She has stopped taking meloxicam because of her recent surgery. She feels that the hydrocodone and Xanax are helpful. She has noticed an increase in the amount of musculoskeletal soreness because of discontinuation of the meloxicam. She rates her pain 80-90% improved with her current medications. She was given a script for 14 pain pills after surgery. She states [facility] would fill them. ALLERGIES: MORPHINE, CODEINE, GABAPENTIN, DULOXETINE CURRENT MEDICATIONS: Alprazolam 0.5 mg 1 p.o. t.i.d., hydrocodone 10/325 one p.o. q.i.d., Meloxicam 7.5 mg b.i.d., albuterol q.i.d. p.r.n., Flonase 0.05% nasal spray, estradiol 1 mg, magnesium 500 mg, Zyrtec 10 mg, vitamins, melatonin 5 mg at bedtime, docusate 250 mg b.i.d. PAIN CLINIC ASSESSMENT AND PQRS: 1. The patient has some arthritic changes in her low back with history of spondylosis. She is not being treated for rheumatoid arthritis. 2. Height 5 feet 2 inches, weight 121 pounds, BMI is 22.3. 3. Vital Signs: Blood pressure 118/64, heart rate 64, respiratory rate 16, room air saturation is 99%, temperature 97.4. 4. Pain intensity 4/10. [place] [address] PAIN MANAGEMENT CONSULTATION Name: LINSEY CRAIG Room: [facility]#: [id number] Admission: 07/23/20 Attend Phys: Julio Mckoy MD Discharge: Date of : 62 Report #: [id number] 5. Fall history: The patient has not fallen in the last 3 months. 6. Blood thinner. The patient is not on a blood thinning medication. 7. Opioids. The patient receives medication from the pain clinic. 8. Risk assessment tool, low for opioid use. 9. Functional assessment tool reviewed. 10. Recreational drug use. The patient denies. 11. Tobacco: The patient has smoked in the past. The patient stopped smoking on a number occasions and has restarted. 12. Alcohol. The patient denies frequent use of alcoholic beverages. PHYSICAL EXAMINATION: GENERAL: The patient is a well-developed, well-nourished white female. Appears her stated age. She is alert and oriented x 3. Her affect is appropriate. Speech is fluent. HEENT: Normocephalic, atraumatic. Extraocular eye muscles intact. Sclerae nonicteric. Mucous membranes are moist. The patient is wearing a mask. The patient has lost 68 pounds since her weight loss surgery. NECK: Without adenopathy or JVD. HEART: Regular rate. S1, S2. LUNGS: Generally clear to auscultation. MUSCULOSKELETAL: The patient without significant scoliosis, kyphosis or lordosis. Upper extremity muscle strength judged to be 5/5 for the major muscle groups in the upper extremity. The patient has some pain and discomfort in the L5-S1 dermatomal distribution and still notes pain that radiates down into her right buttocks and down into her leg involving the ankle and cole on occasion. IMPRESSION: 1. History of lumbar radicular pain in the L5-S1 dermatomal distribution. 2. History of gastric bypass surgery, stable. 3. Right lower quadrant pain improved after cholecystectomy. 4. History of myofascial pain. 5. Symptomatic lumbar radicular pain with history of hernia. 6. Lumbosacral spondylosis with radicular pain into the hip. 7. Lumbar degenerative disk disease. 8. Chronic intractable pain treated ____ opioid medications. 9. Spinal cord stimulator in the past. The patient discontinued it secondary to infection. RECOMMENDATIONS: We discussed treatment options with the patient. At this juncture, she feels her medications are helpful. She is scheduled to see her surgeon in the next few days. She has not taken any nonsteroidal anti-inflammatory medications. We will renew her Mobic medication. She will take this as she needs it. She will first consult her general surgeon. The patient will also continue with hydrocodone. She states that she was given a script for hydrocodone 15 pills to take post-surgery. We have written the patient's script for this month with an additional 15 pills for a [place] 135[place] [address] PAIN MANAGEMENT CONSULTATION Name: LINSEY CRAIG Room: [facility]#: [id number] Admission: 07/23/20 Attend Phys: Julio Mckoy MD Discharge: Date of : 62 Report #: [id number] She will then resume with 120 mg at the next month. She will call us if she has any concerns. She also would like to continue with Flexeril 5 mg as needed. We would like to thank you for letting us participate in her care. We hope she continues to improve. By: [id number]. Javier Mckoy MD /nt
== END ==
LOC: M.PC 10:00
PROVIDERS: ATTEND Anesthesiology Pain Medicine
DX: M51.06 Intervertebral disc disorders with myelopathy, lumbar region (principal); M51.16 Intervertebral disc disorders with radiculopathy, lumbar region; M47.27 Other spondylosis with radiculopathy, lumbosacral region; M79.18 Myalgia, other site; F11.20 Opioid dependence, uncomplicated; Z96.82 Presence of neurostimulator; Z87.39 Personal history of other diseases of the musculoskeletal system and connective tissue; Z98.84 Bariatric surgery status; Z98.1 Arthrodesis status; Z90.49 Acquired absence of other specified parts of digestive tract; Z88.8 Allergy status to other drugs, medicaments and biological substances; Z79.899 Other long term (current) drug therapy

== ENCOUNTER → 2021-02-04 | Outpatient (CLI) | payer OTHER, MEDICAID | LOC: M.PC 10:47 | PROVIDERS: ATTEND Anesthesiology Pain Medicine | DX: M51.16 Intervertebral disc disorders with radiculopathy, lumbar region (principal); M47.27 Other spondylosis with radiculopathy, lumbosacral region; R10.31 Right lower quadrant pain; M79.10 Myalgia, unspecified site; G89.29 Other chronic pain; F11.20 Opioid dependence, uncomplicated; M96.1 Postlaminectomy syndrome, not elsewhere classified; Z98.84 Bariatric surgery status; Z87.39 Personal history of other diseases of the musculoskeletal system and connective tissue ==

== ENCOUNTER → 2021-04-29 | Outpatient (CLI) | payer OTHER, MEDICAID | LOC: M.PC 10:46 | PROVIDERS: ATTEND Anesthesiology Pain Medicine | DX: M47.27 Other spondylosis with radiculopathy, lumbosacral region (principal); M51.17 Intervertebral disc disorders with radiculopathy, lumbosacral region; G89.4 Chronic pain syndrome; Z98.84 Bariatric surgery status; Z98.890 Other specified postprocedural states; Z79.891 Long term (current) use of opiate analgesic; Z79.899 Other long term (current) drug therapy ==

== ENCOUNTER → 2021-07-22 | Outpatient (CLI) | payer OTHER, MEDICAID | LOC: M.PC 10:30 | PROVIDERS: ATTEND Anesthesiology Pain Medicine | DX: M47.27 Other spondylosis with radiculopathy, lumbosacral region (principal); M51.16 Intervertebral disc disorders with radiculopathy, lumbar region; Z98.890 Other specified postprocedural states ==

== ENCOUNTER → 2021-10-14 | Outpatient (CLI) | payer OTHER, MEDICAID | LOC: M.PC 10:53 | PROVIDERS: ATTEND Anesthesiology Pain Medicine | DX: M51.16 Intervertebral disc disorders with radiculopathy, lumbar region (principal); M47.27 Other spondylosis with radiculopathy, lumbosacral region; M96.1 Postlaminectomy syndrome, not elsewhere classified; M79.18 Myalgia, other site; G89.29 Other chronic pain; Z88.8 Allergy status to other drugs, medicaments and biological substances; Z79.899 Other long term (current) drug therapy ==

== ENCOUNTER → 2022-01-06 | Outpatient (CLI) | payer OTHER, MEDICAID | LOC: M.PC 10:37 | PROVIDERS: ATTEND Anesthesiology Pain Medicine | DX: M47.26 Other spondylosis with radiculopathy, lumbar region (principal); M51.16 Intervertebral disc disorders with radiculopathy, lumbar region; G89.29 Other chronic pain; M79.604 Pain in right leg; Z88.8 Allergy status to other drugs, medicaments and biological substances; Z79.899 Other long term (current) drug therapy ==

== ENCOUNTER 2022-01-21 13:59 | Observation (INO) | payer OTHER, MEDICAID ==
[~2022-01-21] VITALS: Ht 157.5 cm; Wt 62.0 kg
--- NOTE | ~2022-01-21 | PROC ---
[address] [address] PROCEDURE REPORT Name: LINSEY CRAIG YIMI Room: [address] Larry Navarro#: [id number] Admission: 01/21/22 Attend Phys: Genesis Gill Discharge: 01/23/22 Date of : 62 Report #: [id number] THIS REPORT FOR: cc: Rigo Hodges MD, Anthony MD [facility],Medical Records Staff ~ For GI report, please see the Provation report in Perceptive 7 content. By: [id number] Records Staff TERA /DARIUS
[2022-01-21 14:06] VITALS: BP 129/86
[2022-01-21 14:39] LABS: ABSOLUTE BASOPHILS 0.1 thou/uL (0.0-0.2); ABSOLUTE LYMPHOCYTES 2.3 thou/uL (0.8-5.3); ABSOLUTE MONOCYTES 0.5 thou/uL (0.0-1.2); ABSOLUTE NEUTROPHILS 10.4 thou/uL (1.6-8.1); BASOPHILS 0.8 %; EOSINOPHILS 0.3 %; HEMATOCRIT 44.2 % (37.0-47.0); HEMOGLOBIN 14.8 gm/dL (12.0-15.0); LYMPHOCYTES 17.1 %; MCH 30.9 pg (26.0-34.0); MCHC 33.4 g/dL (28.0-37.0); MCV 92.5 fL (80.0-100.0); NUCLEATED RBCS 0 /100WBC; PLATELET COUNT* 257 thou/uL (150-400); POLYS 77.8 %; RBC 4.77 mil/uL (4.20-5.00); RDW-CV 12.2 % (10.5-14.5); WBC 13.4 thou/uL (4.0-11.0)
[2022-01-21 14:48] LABS: CALCIUM 8.9 mg/dL (8.5-10.1); CREATININE 0.6 mg/dL (0.6-1.3)
[2022-01-21 14:52] LABS: ALBUMIN 3.9 g/dL (3.4-5.0); TOTAL BILIRUBIN 0.3 mg/dL (<0.1-1.0); TOTAL PROTEIN 7.2 g/dL (6.4-8.2)
[2022-01-21 15:01] LABS: URINE BILIRUBIN NEGATIVE (Negative); URINE BLOOD TRACE (Negative); URINE CLARITY CLEAR; URINE COLOR YELLOW; URINE GLUCOSE-RANDOM NEGATIVE (Negative); URINE KETONES 1+ (Negative); URINE LEUKOCYTES-REFLEX NEGATIVE (Negative); URINE NITRITE-REFLEX NEGATIVE (Negative); URINE PROTEIN NEGATIVE (Negative); URINE UROBILINOGEN 0.2 E.U./dl (0.2-1.0)
--- NOTE | 2022-01-21 16:44 | EKG ---
[place] [address] ELECTROCARDIOGRAM REPORT Name: LINSEY CRAIG Room: [facility]#: [id number] Admission: 01/21/22 Attend Phys: Discharge: Date of : 62 Date of Service: 01/21/22 1439 Report #: [id number] THIS REPORT FOR: //name// [facility] ED Test Date: 2022-01-21 Test Time: 14:39:01 Pat Name: LINESY CRAIG Department: Room: Gender: Director Print: TOYIN : 1960 Requested By: Curry Zepeda Order Number: [id number] MD: Isiah Cabrera Measurements Intervals [place] Rate: 68 P: 45 [place]: 133 QRS: 60 QRSD: 94 T: 60 QT: 424 QTc: 451 Interpretive Statements Sinus rhythm Probable left atrial enlargement Baseline wander in lead(s) V5,V6 No previous ECG available for comparison Electronically Signed On 01-21-2022 16:44:38 PRODUCT DEVELOPMENT ENGINEER by Isiah Cabrera [email or web address] <ELECTRONICALLY SIGNED> By: Isiah Cabrera MD, [facility] 01/21/22 1644 1439 1439 Isiah Cabrera MD, [facility] /EPI
[2022-01-21 19:23] VITALS: BP 116/53
[2022-01-21 19:50] VITALS: BP 112/54
[2022-01-21 20:46] VITALS: BP 117/51
[2022-01-22] MEDS ORDERED: BARIATRIC MV-I1 EACH PO (00:01)
[2022-01-22] MEDS ORDERED: SOLIFENACIN SUC10 MG PO (00:02)
[2022-01-22] MEDS ORDERED: SINGULAIR 10 MG10 MG PO (00:03)
[2022-01-22] MEDS ORDERED: VITAMIN B-121000 MC2 SUBLING (00:04)
[2022-01-22] MEDS ORDERED: C-10001000 MG PO (00:07)
[2022-01-22] MEDS ORDERED: VITAMIN D350 MCG PO (00:09)
[2022-01-22] MEDS ORDERED: ZINC30 MG PO (00:11)
[2022-01-22] MEDS ORDERED: ASA81BEC PO (00:11)
[2022-01-22 08:00] VITALS: BP 104/55
[2022-01-22 11:30] LABS: HEMATOCRIT 36.5 % (37.0-47.0); MCH 31.6 pg (26.0-34.0); MCHC 33.7 g/dL (28.0-37.0); MCV 93.7 fL (80.0-100.0); MPV 8.8 fl. (7.2-11.1); RBC 3.9 mil/uL (4.20-5.00); RDW-CV 12.4 % (10.5-14.5); WBC 8.9 thou/uL (4.0-11.0)
[2022-01-22 11:33] LABS: HEMOGLOBIN 12.3 gm/dL (12.0-15.0)
[2022-01-22 11:37] LABS: CREATININE 0.7 mg/dL (0.6-1.3)
[2022-01-22 16:14] VITALS: BP 100/57
[2022-01-22 16:25] LABS: HEMATOCRIT 35.6 % (37.0-47.0); HEMOGLOBIN 11.9 gm/dL (12.0-15.0); MCH 31.7 pg (26.0-34.0); MCHC 33.6 g/dL (28.0-37.0); MCV 94.5 fL (80.0-100.0); MPV 8.9 fl. (7.2-11.1); RBC 3.77 mil/uL (4.20-5.00); RDW-CV 12.6 % (10.5-14.5); WBC 8.3 thou/uL (4.0-11.0)
[2022-01-22 20:00] VITALS: BP 135/72
[2022-01-23] VITALS (8 sets, daily range): BP systolic 95–135; BP diastolic 48–70
[2022-01-23 04:29] LABS: HEMOGLOBIN 11.4 gm/dL (12.0-15.0); MCH 32.3 pg (26.0-34.0); MCHC 34.4 g/dL (28.0-37.0); MCV 93.7 fL (80.0-100.0); MPV 8.5 fl. (7.2-11.1); RBC 3.52 mil/uL (4.20-5.00); RDW-CV 12.3 % (10.5-14.5); WBC 8.2 thou/uL (4.0-11.0)
[2022-01-23 04:35] LABS: ALBUMIN 2.7 g/dL (3.4-5.0); CALCIUM 7.8 mg/dL (8.5-10.1); CREATININE 0.6 mg/dL (0.6-1.3); MAGNESIUM 1.9 mg/dL (1.8-2.4); POTASSIUM 3.6 mmol/L (3.5-5.1); TOTAL BILIRUBIN 0.3 mg/dL (<0.1-1.0); TOTAL PROTEIN 5.2 g/dL (6.4-8.2)
== END 2022-01-23 16:55 | disposition home or self-care (01) ==
LOC: M.ERS 13:59 → M.ORTHSURG 16:51 → M.TBA-ER 16:51 → M.ORTHSURG 19:59
PROVIDERS: Emergency Medicine Emergency Medical Services; Internal Medicine; ADMIT Internal Medicine; ATTEND Internal Medicine
DX: K52.9 Noninfective gastroenteritis and colitis, unspecified (principal); K57.30 Diverticulosis of large intestine without perforation or abscess without bleeding; K64.4 Residual hemorrhoidal skin tags; K92.1 Melena; R11.2 Nausea with vomiting, unspecified; Z20.822 Contact with and (suspected) exposure to COVID-19; E03.9 Hypothyroidism, unspecified; M54.9 Dorsalgia, unspecified; G89.29 Other chronic pain; Z98.890 Other specified postprocedural states; Z90.710 Acquired absence of both cervix and uterus; Z90.49 Acquired absence of other specified parts of digestive tract